=== PATIENT | female | born 1940 | race Caucasian/White ===

== ENCOUNTER 2024-06-13 05:20 | Day surgery (SDC) | payer MEDICARE ==
[2024-06-07 14:35] LABS: BASOPHILS # (AUTO) 0.1 X10'3 (0-0.2); EOSINOPHILS # (AUTO) 0.1 X10'3 (0-0.9); LYMPHOCYTES % (AUTO) 14.5 % (21-51); MEAN CORPUSCULAR HEMOGLOBIN 30.8 PG (27.0-31.0); MEAN CORPUSCULAR HGB CONC 33.5 g/dL (33.0-36.5); MEAN CORPUSCULAR VOLUME 91.9 FL (78-98); MEAN PLATELET VOLUME 8.2 FL (7.4-10.4); MONOCYTES # (AUTO) 0.5 X10'3 (0-0.9); MONOCYTES % (AUTO) 6.6 % (2-12); NEUTROPHILS # (AUTO) 5.5 X10'3 (1.8-7.7); NEUTROPHILS % (AUTO) 76.9 % (42-75); PRE OP HEMATOCRIT 37.7 % (35.0-45.0); PRE OP HEMOGLOBIN 12.7 g/dL (12.0-16.0); PRE OP PLATELET COUNT 241 X10'3 (140-440); PRE OP WHITE BLOOD COUNT 7.1 10'3 (4.8-10.8); RED BLOOD COUNT 4.11 X10'6 (4.20-5.60); RED CELL DISTRIBUTION WIDTH 13.7 % (11.5-14.5)
[2024-06-07 14:50] LABS: PRE OP PROTIME 10.6 SECONDS (9.0-12.0)
[2024-06-07 14:52] LABS: ALBUMIN 3.6 G/DL (3.4-5.0); ALKALINE PHOSPHATASE 80 IU/L (46-116); BLOOD UREA NITROGEN 26 MG/DL (7-18); BUN/CREATININE RATIO 16.4 (10.0-20.0); CALCIUM 9.3 MG/DL (8.5-10.1); CHLORIDE 102 MMOL/L (99-107); CREATININE 1.59 MG/DL (0.40-0.90); PRE OP ALT 11 U/L (30-65); PRE OP ANION GAP 3 (8-16); PRE OP AST 14 U/L (10-37); PRE OP BILIRUB, TOTAL 0.7 MG/DL (0.0-1.0); PRE OP GLUCOSE 103 MG/DL (70-104); PRE OP POTASSIUM 4.5 MMOL/L (3.4-5.1); PRE OP SODIUM 139 MMOL/L (135-145); TOTAL CARBON DIOXIDE 33.7 MMOL/L (24-32); TOTAL PROTEIN 7.3 G/DL (6.4-8.2); eGFR 31 ML/MIN
[~2024-06-13] VITALS: Ht 160 cm; Wt 96.9 kg
[2024-06-13] VITALS (28 sets, daily range): BP systolic 92–145; BP diastolic 34–68; PULSE 53–103; RESP 0–22; TEMP 96.9–97.9; O2SAT 73–100
[~2024-06-13 05:20] MED LIST: AMLO10TA13; BENA20TA83; CARB1TAB36 PO; GABA300C; LOVA40TA2 PO; TRAZ150T78
[2024-06-13] MEDS: ringers solution, lacted 1,000 ML IV SCH ×3 (06:03→10:00)
[2024-06-13] MEDS: ceFAZolin 2gm in dextrose, iso 50 ML IV ONE (06:03)
[2024-06-13] MEDS: famotidine 20mg tablet PO ONE (06:03)
[2024-06-13] MEDS ORDERED: methylene blue (5mg/ml) 50mg/10ml ampul IV ONE (06:51)
[2024-06-13] MEDS ORDERED: BUPIVACAINE liposomal/PF 13.3 MG/ML 10mL vial IM ONE ×2 (06:51→07:33)
[2024-06-13] MEDS ORDERED: BUPIVAcaine 2.5mg/ml inj 50ml vial (contains preservative) ONE (06:51)
[2024-06-13] MEDS ORDERED: BUPIVAcaine/PF 2.5mg/ml (0.25%) 10ml vial ONE (07:34)
[2024-06-13] MEDS ORDERED: fentaNYL/PF 50MCG/1 ML 2ML syringe ONE (07:37)
[2024-06-13] MEDS ORDERED: sevoflurane 250ml liquid IH ONE (07:37)
[2024-06-13] MEDS ORDERED: midazolam 1 mg/ML 2ml injection ONE (08:10)
[2024-06-13] MEDS ORDERED: propofol inj 20 ML IV ONE (08:10)
[2024-06-13] MEDS ORDERED: dexamethasone sod phosphate 4mg/ml inj. ONE (08:11)
[2024-06-13] MEDS ORDERED: ondansetron/PF 4mg/2ml inj ONE (08:11)
[2024-06-13] MEDS: methylene blue (5mg/ml) 50mg/10ml ampul IV ONE (08:39)
[2024-06-13] MEDS: BUPIVAcaine/PF 2.5 mg/ml (0.25%) 30ml vial IJ ONE (08:48)
[2024-06-13] MEDS ORDERED: meperidine/PF 25mg/ml syringe IV PRN ×2 (09:55)
[2024-06-13] MEDS ORDERED: morphine 2 MG/ML inj. syringe IV PRN ×2 (09:55→10:05)
[2024-06-13] MEDS ORDERED: labetalol 20mg/4ml (5mg/ml) syringe IV PRN (09:55)
[2024-06-13] MEDS ORDERED: hydrALAZINE 20mg/ml inj. IV PRN (09:55)
[2024-06-13] MEDS ORDERED: proCHLORperazine 10 MG/2 ml inj IV PRN (09:55)
[2024-06-13] MEDS ORDERED: ondansetron/PF 4mg/2ml inj IV PRN ×2 (09:55→10:00)
[2024-06-13] MEDS ORDERED: acetaminophen w/codeine (30MG) #3 tablet PO PRN (10:00)
[2024-06-13] MEDS: meperidine/PF 25mg/ml syringe IV PRN (10:25)
[2024-06-13] MEDS: acetaminophen 1,000mg/100ml IV 100 ML IV PRN (10:26)
[2024-06-13] MEDS: morphine 4 MG/ML inj SYRINge IV PRN (10:30)
[2024-06-13] MEDS: cefazolin 2gm/D5W 100mL 100 ML IV SCH (17:53)
[2024-06-13] MEDS: gabapentin 300mg capsule PO SCH (20:10)
[2024-06-13] MEDS: carbidoba-levodopa 25-100mg tablet PO SCH (20:11)
[2024-06-13] MEDS: traZODone 150mg tablet PO SCH (22:38)
[2024-06-14 02:00] VITALS: BP 100/51; PULSE 60; RESP 16; TEMP 97.8; O2SAT 96
[2024-06-14 05:12] LABS: BASOPHILS % (AUTO) 0.2 % (0-1); EOSINOPHILS % (AUTO) 0 % (0-6); HEMATOCRIT 32.1 % (35.0-45.0); HEMOGLOBIN 11.1 g/dl (12.0-16.0); LYMPHOCYTES % (AUTO) 9.9 % (21-51); MEAN CORPUSCULAR HEMOGLOBIN 31.8 PG (27.0-31.0); MEAN CORPUSCULAR HGB CONC 34.4 g/dL (33.0-36.5); MEAN CORPUSCULAR VOLUME 92.4 FL (78-98); MEAN PLATELET VOLUME 8.6 FL (7.4-10.4); MONOCYTES # (AUTO) 0.9 X10'3 (0-0.9); MONOCYTES % (AUTO) 8.8 % (2-12); NEUTROPHILS # (AUTO) 8.3 X10'3 (1.8-7.7); NEUTROPHILS % (AUTO) 81.1 % (42-75); PLATELET COUNT 204 X10'3 (140-440); RED BLOOD COUNT 3.48 X10'6 (4.20-5.60); RED CELL DISTRIBUTION WIDTH 13.4 % (11.5-14.5); WHITE BLOOD COUNT 10.3 X10'3 (4.5-11.0)
[2024-06-14 06:00] VITALS: BP 108/39; PULSE 59; RESP 16; TEMP 97.8; O2SAT 95
[2024-06-14 08:00] VITALS: RESP 16; O2SAT 95
[2024-06-14] MEDS: amLODIPine 5mg tablet PO SCH (08:40)
[2024-06-14] MEDS: lisinopril 20mg tablet PO SCH (08:41)
[2024-06-14] MEDS: pneumococcal 23-VAL P-sac vacc 25 mcg/0.5ml vial IMVAC ONE (08:43)
[2024-06-14 10:00] VITALS: BP 108/40; PULSE 65; RESP 15; TEMP 98.6; O2SAT 96
== END 2024-06-14 14:22 | disposition home or self-care (01) ==
LOC: PAS 05:20 → SUR 3N 10:01 → PAS 06-14 14:22
PROVIDERS: ATTEND Surgery
DX: C50.512 Malignant neoplasm of lower-outer quadrant of left female breast (principal); C77.3 Secondary and unspecified malignant neoplasm of axilla and upper limb lymph nodes; Z17.0 Estrogen receptor positive status [ER+]; I10 Essential (primary) hypertension; Z87.891 Personal history of nicotine dependence; Z98.890 Other specified postprocedural states; Z79.899 Other long term (current) drug therapy; Z79.01 Long term (current) use of anticoagulants; Z90.710 Acquired absence of both cervix and uterus; T14.8XXA Other injury of unspecified body region, initial encounter; W19.XXXA Unspecified fall, initial encounter; Y93.89 Activity, other specified; Y92.89 Other specified places as the place of occurrence of the external cause; Y99.8 Other external cause status; D68.00 Von Willebrand disease, unspecified; Z88.5 Allergy status to narcotic agent; Z23 Encounter for immunization
CPT/HCPCS: 19303; 36415; 38525; 38900; 80053; 82948; 85025; 85610; 85730; 86885; 86900; 86901; 87081; 90471; 90732; 93005; A4215; A4615; A4618; A6213; A6253; A6258; A6402; A6449; A7000; J0131; J0666; J0690; J1100; J2175; J2250; J2270; J2405; J2704; J3010; J3490; J7030; J7120; Q9968; Z7506; Z7508; Z7512; Z7610; 88307; 88342; C9250; G0378